=== PATIENT | male | born 1970 | race Caucasian/White ===

== ENCOUNTER → 2020-03-02 | Outpatient (CLI) | payer OTHER | LOC: HYPER 11:57 | PROVIDERS: ATTEND Emergency Medicine | DX: E11.621 Type 2 diabetes mellitus with foot ulcer (principal); L97.515 Non-pressure chronic ulcer of other part of right foot with muscle involvement without evidence of necrosis; L03.031 Cellulitis of right toe; L84 Corns and callosities; B35.1 Tinea unguium; E11.21 Type 2 diabetes mellitus with diabetic nephropathy; E11.69 Type 2 diabetes mellitus with other specified complication; M86.9 Osteomyelitis, unspecified; E11.40 Type 2 diabetes mellitus with diabetic neuropathy, unspecified; E11.22 Type 2 diabetes mellitus with diabetic chronic kidney disease; I12.0 Hypertensive chronic kidney disease with stage 5 chronic kidney disease or end stage renal disease; N18.6 End stage renal disease; E66.01 Morbid (severe) obesity due to excess calories; E78.5 Hyperlipidemia, unspecified; M19.90 Unspecified osteoarthritis, unspecified site; M79.675 Pain in left toe(s); M79.674 Pain in right toe(s); R23.8 Other skin changes; Z68.42 Body mass index [BMI] 45.0-49.9, adult; Z99.2 Dependence on renal dialysis; Z89.411 Acquired absence of right great toe; Z79.4 Long term (current) use of insulin; Z79.52 Long term (current) use of systemic steroids ==

== ENCOUNTER → 2020-03-09 | Outpatient (CLI) | payer OTHER | LOC: HYPER 14:14 | PROVIDERS: ATTEND Emergency Medicine Emergency Medical Services | DX: E11.621 Type 2 diabetes mellitus with foot ulcer (principal); L97.512 Non-pressure chronic ulcer of other part of right foot with fat layer exposed; L03.031 Cellulitis of right toe; L84 Corns and callosities; B35.1 Tinea unguium; E11.21 Type 2 diabetes mellitus with diabetic nephropathy; E11.69 Type 2 diabetes mellitus with other specified complication; M86.9 Osteomyelitis, unspecified; E11.40 Type 2 diabetes mellitus with diabetic neuropathy, unspecified; E11.22 Type 2 diabetes mellitus with diabetic chronic kidney disease; I12.0 Hypertensive chronic kidney disease with stage 5 chronic kidney disease or end stage renal disease; N18.6 End stage renal disease; E66.01 Morbid (severe) obesity due to excess calories; E78.5 Hyperlipidemia, unspecified; M19.90 Unspecified osteoarthritis, unspecified site; M79.675 Pain in left toe(s); M79.674 Pain in right toe(s); R23.8 Other skin changes; Z68.42 Body mass index [BMI] 45.0-49.9, adult; Z99.2 Dependence on renal dialysis; Z89.411 Acquired absence of right great toe; Z79.4 Long term (current) use of insulin; Z79.52 Long term (current) use of systemic steroids ==

== ENCOUNTER → 2020-03-23 | Outpatient (CLI) | payer OTHER | LOC: HYPER 13:15 | PROVIDERS: ATTEND Emergency Medicine | DX: E11.621 Type 2 diabetes mellitus with foot ulcer (principal); L97.515 Non-pressure chronic ulcer of other part of right foot with muscle involvement without evidence of necrosis; L03.031 Cellulitis of right toe; B35.1 Tinea unguium; E11.40 Type 2 diabetes mellitus with diabetic neuropathy, unspecified; E11.22 Type 2 diabetes mellitus with diabetic chronic kidney disease; I12.0 Hypertensive chronic kidney disease with stage 5 chronic kidney disease or end stage renal disease; N18.6 End stage renal disease; E11.69 Type 2 diabetes mellitus with other specified complication; M86.8X8 Other osteomyelitis, other site; E11.21 Type 2 diabetes mellitus with diabetic nephropathy; E66.01 Morbid (severe) obesity due to excess calories; E78.5 Hyperlipidemia, unspecified; R23.8 Other skin changes; M79.675 Pain in left toe(s); M79.674 Pain in right toe(s); M19.90 Unspecified osteoarthritis, unspecified site; Z89.411 Acquired absence of right great toe; Z99.2 Dependence on renal dialysis; Z79.4 Long term (current) use of insulin; Z79.52 Long term (current) use of systemic steroids; Z68.42 Body mass index [BMI] 45.0-49.9, adult ==

== ENCOUNTER → 2020-04-06 | Outpatient (CLI) | payer OTHER | LOC: HYPER 13:27 | PROVIDERS: ATTEND Emergency Medicine | DX: E11.621 Type 2 diabetes mellitus with foot ulcer (principal); L97.512 Non-pressure chronic ulcer of other part of right foot with fat layer exposed; L03.031 Cellulitis of right toe; E11.40 Type 2 diabetes mellitus with diabetic neuropathy, unspecified; E11.22 Type 2 diabetes mellitus with diabetic chronic kidney disease; I12.0 Hypertensive chronic kidney disease with stage 5 chronic kidney disease or end stage renal disease; N18.6 End stage renal disease; E11.21 Type 2 diabetes mellitus with diabetic nephropathy; E11.69 Type 2 diabetes mellitus with other specified complication; M86.9 Osteomyelitis, unspecified; E78.5 Hyperlipidemia, unspecified; B35.1 Tinea unguium; R23.8 Other skin changes; M19.90 Unspecified osteoarthritis, unspecified site; M79.675 Pain in left toe(s); M79.674 Pain in right toe(s); E66.01 Morbid (severe) obesity due to excess calories; Z89.411 Acquired absence of right great toe; Z99.2 Dependence on renal dialysis; Z79.4 Long term (current) use of insulin; Z79.52 Long term (current) use of systemic steroids; Z68.41 Body mass index [BMI] 40.0-44.9, adult ==

== ENCOUNTER → 2020-04-20 | Outpatient (CLI) | payer OTHER | LOC: HYPER 13:11 | PROVIDERS: ATTEND Emergency Medicine | DX: E11.621 Type 2 diabetes mellitus with foot ulcer (principal); L97.515 Non-pressure chronic ulcer of other part of right foot with muscle involvement without evidence of necrosis; L03.031 Cellulitis of right toe; E11.40 Type 2 diabetes mellitus with diabetic neuropathy, unspecified; E11.21 Type 2 diabetes mellitus with diabetic nephropathy; E11.69 Type 2 diabetes mellitus with other specified complication; M86.9 Osteomyelitis, unspecified; E11.22 Type 2 diabetes mellitus with diabetic chronic kidney disease; I12.0 Hypertensive chronic kidney disease with stage 5 chronic kidney disease or end stage renal disease; N18.6 End stage renal disease; E78.5 Hyperlipidemia, unspecified; E66.01 Morbid (severe) obesity due to excess calories; B35.1 Tinea unguium; R23.8 Other skin changes; M79.675 Pain in left toe(s); M79.674 Pain in right toe(s); M19.90 Unspecified osteoarthritis, unspecified site; Z89.411 Acquired absence of right great toe; Z79.4 Long term (current) use of insulin; Z79.52 Long term (current) use of systemic steroids; Z99.2 Dependence on renal dialysis; Z68.42 Body mass index [BMI] 45.0-49.9, adult ==

== ENCOUNTER → 2020-05-04 | Outpatient (CLI) | payer OTHER | LOC: HYPER 13:19 | PROVIDERS: ATTEND Emergency Medicine | DX: E11.621 Type 2 diabetes mellitus with foot ulcer (principal); L97.515 Non-pressure chronic ulcer of other part of right foot with muscle involvement without evidence of necrosis; E11.69 Type 2 diabetes mellitus with other specified complication; M86.9 Osteomyelitis, unspecified; E11.40 Type 2 diabetes mellitus with diabetic neuropathy, unspecified; E11.22 Type 2 diabetes mellitus with diabetic chronic kidney disease; I12.0 Hypertensive chronic kidney disease with stage 5 chronic kidney disease or end stage renal disease; N18.6 End stage renal disease; E11.21 Type 2 diabetes mellitus with diabetic nephropathy; E66.01 Morbid (severe) obesity due to excess calories; E78.5 Hyperlipidemia, unspecified; B35.1 Tinea unguium; R23.8 Other skin changes; M79.675 Pain in left toe(s); M79.674 Pain in right toe(s); M19.90 Unspecified osteoarthritis, unspecified site; Z99.2 Dependence on renal dialysis; Z89.411 Acquired absence of right great toe; Z79.4 Long term (current) use of insulin; Z79.52 Long term (current) use of systemic steroids; Z68.42 Body mass index [BMI] 45.0-49.9, adult ==

== ENCOUNTER → 2020-05-11 | Outpatient (CLI) | payer OTHER | LOC: HYPER 13:50 | PROVIDERS: ATTEND Emergency Medicine | DX: E11.621 Type 2 diabetes mellitus with foot ulcer (principal); L97.515 Non-pressure chronic ulcer of other part of right foot with muscle involvement without evidence of necrosis; E11.69 Type 2 diabetes mellitus with other specified complication; M86.9 Osteomyelitis, unspecified; E11.40 Type 2 diabetes mellitus with diabetic neuropathy, unspecified; E11.21 Type 2 diabetes mellitus with diabetic nephropathy; E11.22 Type 2 diabetes mellitus with diabetic chronic kidney disease; I12.0 Hypertensive chronic kidney disease with stage 5 chronic kidney disease or end stage renal disease; N18.6 End stage renal disease; E66.01 Morbid (severe) obesity due to excess calories; E78.5 Hyperlipidemia, unspecified; B35.1 Tinea unguium; R23.8 Other skin changes; M19.90 Unspecified osteoarthritis, unspecified site; M79.675 Pain in left toe(s); M79.674 Pain in right toe(s); Z79.4 Long term (current) use of insulin; Z79.52 Long term (current) use of systemic steroids; Z99.2 Dependence on renal dialysis; Z89.411 Acquired absence of right great toe; Z68.42 Body mass index [BMI] 45.0-49.9, adult ==

== ENCOUNTER → 2020-05-25 | Outpatient (CLI) | payer OTHER | LOC: HYPER 13:53 | PROVIDERS: ATTEND Emergency Medicine | DX: E11.621 Type 2 diabetes mellitus with foot ulcer (principal); L97.515 Non-pressure chronic ulcer of other part of right foot with muscle involvement without evidence of necrosis; E11.69 Type 2 diabetes mellitus with other specified complication; M86.9 Osteomyelitis, unspecified; E11.40 Type 2 diabetes mellitus with diabetic neuropathy, unspecified; E11.22 Type 2 diabetes mellitus with diabetic chronic kidney disease; I12.0 Hypertensive chronic kidney disease with stage 5 chronic kidney disease or end stage renal disease; N18.6 End stage renal disease; E11.21 Type 2 diabetes mellitus with diabetic nephropathy; E66.01 Morbid (severe) obesity due to excess calories; E78.5 Hyperlipidemia, unspecified; B35.1 Tinea unguium; R23.8 Other skin changes; M79.675 Pain in left toe(s); M79.674 Pain in right toe(s); M19.90 Unspecified osteoarthritis, unspecified site; Z79.4 Long term (current) use of insulin; Z79.52 Long term (current) use of systemic steroids; Z99.2 Dependence on renal dialysis; Z89.411 Acquired absence of right great toe; Z68.42 Body mass index [BMI] 45.0-49.9, adult ==

== ENCOUNTER → 2020-06-08 | Outpatient (CLI) | payer OTHER | LOC: HYPER 15:27 | PROVIDERS: ATTEND Emergency Medicine | DX: E11.621 Type 2 diabetes mellitus with foot ulcer (principal); L97.515 Non-pressure chronic ulcer of other part of right foot with muscle involvement without evidence of necrosis; E11.42 Type 2 diabetes mellitus with diabetic polyneuropathy; E11.69 Type 2 diabetes mellitus with other specified complication; M86.9 Osteomyelitis, unspecified; M79.675 Pain in left toe(s); M79.674 Pain in right toe(s); R23.8 Other skin changes; B35.1 Tinea unguium; E78.5 Hyperlipidemia, unspecified; E11.22 Type 2 diabetes mellitus with diabetic chronic kidney disease; I12.0 Hypertensive chronic kidney disease with stage 5 chronic kidney disease or end stage renal disease; N18.6 End stage renal disease; M19.90 Unspecified osteoarthritis, unspecified site; Z79.4 Long term (current) use of insulin; Z79.52 Long term (current) use of systemic steroids; Z99.2 Dependence on renal dialysis; Z89.411 Acquired absence of right great toe ==

== ENCOUNTER → 2020-06-21 | Outpatient (CLI) | payer OTHER | LOC: HYPER 08:31 | PROVIDERS: ATTEND Emergency Medicine | DX: E11.621 Type 2 diabetes mellitus with foot ulcer (principal); L97.515 Non-pressure chronic ulcer of other part of right foot with muscle involvement without evidence of necrosis; E11.69 Type 2 diabetes mellitus with other specified complication; M86.9 Osteomyelitis, unspecified; E66.01 Morbid (severe) obesity due to excess calories; E11.40 Type 2 diabetes mellitus with diabetic neuropathy, unspecified; E11.22 Type 2 diabetes mellitus with diabetic chronic kidney disease; I12.0 Hypertensive chronic kidney disease with stage 5 chronic kidney disease or end stage renal disease; N18.6 End stage renal disease; E11.21 Type 2 diabetes mellitus with diabetic nephropathy; E78.5 Hyperlipidemia, unspecified; M79.675 Pain in left toe(s); M79.674 Pain in right toe(s); B35.1 Tinea unguium; R23.8 Other skin changes; M19.90 Unspecified osteoarthritis, unspecified site; Z89.411 Acquired absence of right great toe; Z68.42 Body mass index [BMI] 45.0-49.9, adult; Z79.4 Long term (current) use of insulin; Z79.52 Long term (current) use of systemic steroids; Z99.2 Dependence on renal dialysis ==

== ENCOUNTER → 2020-08-01 | Outpatient (CLI) | payer OTHER | LOC: HYPER 13:50 | PROVIDERS: ATTEND Emergency Medicine | DX: E11.621 Type 2 diabetes mellitus with foot ulcer (principal); L97.515 Non-pressure chronic ulcer of other part of right foot with muscle involvement without evidence of necrosis; L84 Corns and callosities; E11.40 Type 2 diabetes mellitus with diabetic neuropathy, unspecified; E11.69 Type 2 diabetes mellitus with other specified complication; M86.9 Osteomyelitis, unspecified; M79.675 Pain in left toe(s); M79.674 Pain in right toe(s); R23.8 Other skin changes; B35.1 Tinea unguium; E78.5 Hyperlipidemia, unspecified; E11.21 Type 2 diabetes mellitus with diabetic nephropathy; E11.22 Type 2 diabetes mellitus with diabetic chronic kidney disease; I12.0 Hypertensive chronic kidney disease with stage 5 chronic kidney disease or end stage renal disease; N18.6 End stage renal disease; M19.90 Unspecified osteoarthritis, unspecified site; Z79.52 Long term (current) use of systemic steroids; Z79.4 Long term (current) use of insulin; Z99.2 Dependence on renal dialysis; Z89.411 Acquired absence of right great toe ==

== ENCOUNTER → 2020-08-22 | Outpatient (CLI) | payer OTHER | LOC: HYPER 08:47 | PROVIDERS: ATTEND Emergency Medicine | DX: E11.621 Type 2 diabetes mellitus with foot ulcer (principal); L97.515 Non-pressure chronic ulcer of other part of right foot with muscle involvement without evidence of necrosis; L84 Corns and callosities; E11.40 Type 2 diabetes mellitus with diabetic neuropathy, unspecified; E11.69 Type 2 diabetes mellitus with other specified complication; M86.9 Osteomyelitis, unspecified; R23.8 Other skin changes; B35.1 Tinea unguium; E78.5 Hyperlipidemia, unspecified; E11.21 Type 2 diabetes mellitus with diabetic nephropathy; E11.22 Type 2 diabetes mellitus with diabetic chronic kidney disease; I12.0 Hypertensive chronic kidney disease with stage 5 chronic kidney disease or end stage renal disease; N18.6 End stage renal disease; M19.90 Unspecified osteoarthritis, unspecified site; M79.675 Pain in left toe(s); M79.674 Pain in right toe(s); Z79.52 Long term (current) use of systemic steroids; Z79.4 Long term (current) use of insulin; Z99.2 Dependence on renal dialysis; Z89.411 Acquired absence of right great toe ==

== ENCOUNTER → 2020-09-05 | Outpatient (CLI) | payer OTHER | LOC: HYPER 10:35 | PROVIDERS: ATTEND Emergency Medicine | DX: E11.621 Type 2 diabetes mellitus with foot ulcer (principal); L97.515 Non-pressure chronic ulcer of other part of right foot with muscle involvement without evidence of necrosis; L84 Corns and callosities; E11.40 Type 2 diabetes mellitus with diabetic neuropathy, unspecified; E11.69 Type 2 diabetes mellitus with other specified complication; M86.9 Osteomyelitis, unspecified; R23.8 Other skin changes; B35.1 Tinea unguium; E78.5 Hyperlipidemia, unspecified; E11.21 Type 2 diabetes mellitus with diabetic nephropathy; E11.22 Type 2 diabetes mellitus with diabetic chronic kidney disease; I12.0 Hypertensive chronic kidney disease with stage 5 chronic kidney disease or end stage renal disease; N18.6 End stage renal disease; M19.90 Unspecified osteoarthritis, unspecified site; M79.675 Pain in left toe(s); M79.674 Pain in right toe(s); Z79.52 Long term (current) use of systemic steroids; Z79.4 Long term (current) use of insulin; Z99.2 Dependence on renal dialysis; Z89.411 Acquired absence of right great toe ==

== ENCOUNTER → 2020-09-09 | Outpatient (CLI) | payer OTHER ==
[~2020-09-09] MED LIST: ASA81BEC PO; CATAPRES0.1 MG PO; FUROSEMIDE 80 M80 M1 PO; KLONOPIN1 MG PO; LABETALOL HCL300 MG PO; LIPITOR40 MG PO; NEPHRO-VITE RX1 TA1 PO; NOVOLOG FL100 UNIT/M SUBQ; PREDNISONE 5 MG5 M1 PO; PROTONIX40 M2 PO; RENVELA0.8 GM PO; TRESIBA FL100 UNIT/1 SUBQ; VASCEPA1 GM PO; VERAPAMIL ER180 M1 PO; VICTOZA 3-0.6 MG/0.1 SUBQ
== END ==
LOC: LAB 14:06
PROVIDERS: ATTEND Orthopaedic Surgery Hand Surgery
DX: Z01.812 Encounter for preprocedural laboratory examination (principal); Z20.822 Contact with and (suspected) exposure to COVID-19

== ENCOUNTER → 2020-09-12 | Day surgery (SDC) | payer OTHER ==
[~2020-09-12] VITALS: Ht 175.3 cm; Wt 136.1 kg
--- NOTE | ~2020-09-12 | O ---
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 SURGEON: Kaur Santos MD ANESTHESIA: General mask anesthesia. ESTIMATED BLOOD LOSS: Minimal. TOURNIQUET TIME: None. COMPLICATIONS: None. CONDITION: Stable. DISPOSITION: Recovery room. INDICATIONS: The patient is a 49-year-old male with severe peripheral neuropathy and what appears to be significant ulnar neuropathy at the elbow. The risks, benefits, alternatives and complications were discussed including risk of incomplete relief of any symptoms, infection, damage to vessels or nerves, wound healing problems or worsening of any symptoms. Informed consent was obtained. We discussed his diabetic control and he reports his hemoglobin A1c has never been as high as 10 and his blood sugar yesterday was approximately 180. We discussed the importance of maintaining good glycemic control in order to decrease his infection risk and improved wound healing. The correct extremity was identified and labeled by myself after verbal confirmation of the patient as well as visual confirmation and signed informed consent. A timeout was taken and under sterile conditions, a total of 15 mL was injected subcutaneously along the incision line. This is ___ gauge needle. He tolerated this well. DESCRIPTION OF PROCEDURE: The patient was brought back to the operating room and placed ___ position. Right extremity was sterilely prepped and draped in the usual fashion. A final timeout was taken to verify correct patient, [facility] [address] [place] [address] OPERATIVE REPORT Name: DANO PEDRAZA Room #: REG [facility]#: [id number] Admission: 09/12/20 Attend Phys: Kaur Santos, Discharge: Date of : 70 Report #: [id number] operative procedure, operative site, all concurred and operative site with a Ray-Felipe was placed over his fistula and then in the hand he had some abrasions. A stockinette was placed over the hand. The entire procedure was done with aid of 3.5 loupe magnification. Next, a 10 cm incision was made over the course of the ulnar nerve posterior to the epicondyle. Dissection was carried down through subcutaneous tissue with tenotomy scissors. The ulnar nerve was identified posterior to the medial epicondyle and completely decompressed for approximately 10 cm proximal to the medial epicondyle through the Cordova's fascia and 5 cm distal. At this point, the elbow was taken through full range of motion. The ulnar nerve did sublux just slightly anterior to the medial epicondyle and so it was mobilized. A Z cut incision was made in the flexor pronator fascia. Any raphe that would imping upon the nerve were incised and the medial intermuscular septum was incised. Hemostasis was achieved. The nerve was transposed anteriorly, taking care to preserve any branches. The flexor pronator fascia was loosely reapproximated over the nerve with a 3-0 Vicryl suture. The subcutaneous fat was sutured just anterior to the medial epicondyle with 2-0 Vicryl suture in order to increase the length of structures holding the ulnar nerve anteriorly to potential decrease any areas of significant impingement. The elbow was taken through full range of motion. The nerve was evaluated multiple times throughout the repair of these tissues. There was no kinking or stretching or compression. The wound was thoroughly irrigated. The skin was closed with 3-0 nylon suture. The wound was dressed with Adaptic and sterile gauze. He was placed in a bulky dressing and dorsal slab and elbow splint with the elbow flexed to approximately 45 degrees, distal to the fistula. First, an Mumtaz wrap was placed and then a second Mumtaz wrap was placed at the level of the fistula, extremely carefully with no compression. The fistula was palpable after application of the Mumtaz wrap. All fingers were pink with brisk capillary refill at the conclusion of case. All sponge and needle counts were correct. The patient was transferred to postoperative recovery room in stable condition. By: [id number] Kaur Santos MD /nt
[2020-09-12 13:40] VITALS: BP 131/70
[2020-09-12 14:16] LABS: CALCIUM 9.2 mg/dL (8.5-10.1); CREATININE 6.8 mg/dL (0.7-1.3)
[2020-09-12 14:21] LABS: ALBUMIN 3.2 g/dL (3.4-5.0); TOTAL BILIRUBIN 0.6 mg/dL (0.2-1.0); TOTAL PROTEIN 7.2 g/dL (6.4-8.2)
[2020-09-12 16:11] VITALS: BP 131/70
--- NOTE | 2020-09-13 06:48 | EKG ---
[address] [address] ELECTROCARDIOGRAM REPORT Name: DANO PEDRAZA Room #: [facility]#: [id number] Admission: 09/12/20 Attend Phys: Kaur Santos, Discharge: Date of : 70 Report #: [id number] [facility] Test Date: 2020-09-12 Test Time: 13:25:56 Pat Name: DANO PEDRAZA Department: Room: Gender: Voice Over Artist: AIDEN : 1970 Requested By: Kaur Santos Order Number: [id number] MD: Fazal Arellano Measurements Intervals [place] Rate: 67 P: 56 MI: 225 QRS: 32 QRSD: 100 T: 57 QT: 439 QTc: 464 Interpretive Statements Sinus rhythm Prolonged MI interval No previous ECG available for comparison Electronically Signed On 09-13-2020 6:48:04 [employer] by Fazal Arellano [email or web address] <ELECTRONICALLY SIGNED> By: Fazal Arellano MD, [facility] 09/13/20 0648 1325 1325 Fazal Arellano MD, FACC /EPI
== END | disposition home or self-care (01) ==
LOC: OR 12:56 → EDSTATUS 14:27
PROVIDERS: ATTEND Orthopaedic Surgery Hand Surgery
DX: G56.21 Lesion of ulnar nerve, right upper limb (principal); G62.9 Polyneuropathy, unspecified; I12.0 Hypertensive chronic kidney disease with stage 5 chronic kidney disease or end stage renal disease; E11.22 Type 2 diabetes mellitus with diabetic chronic kidney disease; N18.6 End stage renal disease; E78.5 Hyperlipidemia, unspecified; I42.9 Cardiomyopathy, unspecified; G47.33 Obstructive sleep apnea (adult) (pediatric); K21.9 Gastro-esophageal reflux disease without esophagitis; Z98.890 Other specified postprocedural states; Z79.899 Other long term (current) drug therapy; Z79.4 Long term (current) use of insulin; Z94.0 Kidney transplant status; Z99.2 Dependence on renal dialysis; Z88.1 Allergy status to other antibiotic agents
CPT/HCPCS: 50010; 50101; 50386; 56524; 56525; 56527; 57006; 57091; 62110; 62900; 70005